=== PATIENT | female | born 1985 | race Caucasian/White ===

== ENCOUNTER 2024-07-14 14:50 | Outpatient (AMB) | payer OTHER, SELFPAY ==
--- NOTE | 2024-07-14 15:12 | A.OFFPC_ITS ---
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 ?? Prior PCP:?Lesser Last office visit/CPE:?> 5 yrs Acute issue(s):? Bouts of fatigue ?? PMHx:? Anemia, Covid, SurgHx:?None FHx:? Dad: DM, CHF, CAD , SD & Stents. CVA. Mom: Healthy. GM Breast CA, Parkinsons. SocHx: Quits cigs about 13 yrs ago, EtOH Occassioal 1-2 dr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 1. Little interest or pleasure in doing things: not at all 2. Feeling down, depressed, or hopeless: not at all 3. Trouble falling or staying asleep, or sleeping too much: several days 4. Feeling tired or having little energy: several days 5. Poor appetite or overeating: not at all 6. Feeling bad about yourself - or that you are a failure or have let yourself or your family down: not at all 7. Trouble concentrating on things, such as reading the newspaper or watching television: not at all 8. Moving or speaking so slowly that other people could have noticed. Or the op posite - being so fidgety or restless that you have been moving around a lot more than usual: not at all 9. Thoughts that you would be better off or of hurting yourself in some way: not at all Total score: 2 Depression Screening Interpretation: Negative Depression Screening Done: Yes 78299 - PHQ-9 Billing: Yes Source: Developed by Drs. Partha Sahni, Yana Varner, Parminder Ritchie and colleagues, with an educational jose from [employer]. Thrive Questionnaire Date Thrive assessed: 07/14/24 I am a: Patient What is your living situation today?: I have a steady place to live Within the past 12 months, did the food you bought not last and you didn't have the money to get more?: Never true Within the past 12 months, did you worry whether your food would run out before you got money to buy more?: Never true Do you have trouble paying for medicines?: No Do you have trouble getting transportation to medical appointments?: No Do you have trouble paying your heating and electricity bill?: No Do you have trouble taking care of your child, family member or friend?: No Do you have trouble with day-to-day activities such as bathing, preparing meals, shopping, managing finances, etc.?: No Are you currently unemployed and looking for a job?: No Are you interested in more education?: No Currently or been in a relationship where the following occur: No concerns reported THRIVE Score: 0 AUDIT C Alcohol Use Questionnaire (AUDIT-C) 1. How often do you have a drink containing alcohol?: Monthly or less 2. How many drinks containing alcohol do you have on a typical day when you are drinking?: 1 or 2 3. How often do you have six or more drinks on one occasion?: Never Total Score: 1 LASHAY-7 AMB Questionnaire LASHAY-7 Date LASHAY - 7 assessed: 07/14/24 Feeling nervous, anxious, or on edge: 0 = Not at all Not being able to stop or control worryin = Not at all Worrying too much about different things: 0 = Not at all Trouble relaxin = Several days Being so restless that it is hard to sit still: 0 = Not at all Becoming easily annoyed or irritable: 1 = Several days Feeling afraid as if something awful might happen: 0 = Not at all Total LASHAY-7 score (0-4 normal; 5-9 mild; 10-14 moderate; 15-21 severe): 2 Source: Developed by Drs. Partha Sahni, Yana Varner, Parminder Ritchie and colleagues, with an educational jose from [employer]. LASHAY-7 Assessment Billing LASHAY-7 Assessment Tool: LASHAY-7 Assessment 52513 Review of Systems Const Denies chills, Denies fatigue, Denies fever(s), Denies headache(s) and Denies weakness ENT Denies dizziness and Denies headache(s) Card Denies chest pain, Denies lightheadedness, Denies dyspnea and Denies other (Palpitations) Resp Denies cough, Denies dyspnea, Denies wheezing and Denies other ( shortness of breath) Musc Denies numbness and Denies tingling Neuro Denies dizziness, Denies headache(s), Denies numbness, Denies tingling, Denies paresthesias and Denies weakness Psych Denies anxiety and Denies depression Endo Denies fatigue Aller/Immun Denies wheezing Physical exam (Primary Care) Vital Signs: Last Vital Signs Temp 97.9 F 07/14/24 15:33 Pulse 92 07/14/24 15:33 Resp 16 07/14/24 15:33 BP 110/70 07/14/24 15:33 Pulse Ox 98 07/14/24 15:33 Oxygen Delivery Method Room Air 07/14/24 15:33 BMI result Body Mass Index 44.8 Tobacco/Smoking Status: Tobacco use Status Tobacco use date assessed 07/14/24 07/14/24 15:22 Patient Tobacco Use Status Former Tobacco user 07/14/24 15:30 e-Cigarette/Vaping Use Never Used 07/14/24 15:30 PHQ-9: PHQ-9 Score PHQ-9: Total score 2 07/14/24 15:36 Depression Screening Interpretation: Negative Thrive Assessment: Date of Thrive Assessment Date Thrive assessed 07/14/24 07/14/24 15:36 Currently or been in a relationship where the following occur: No concerns reported Const General: no acute distress and well developed Nutritional Appearance: well nourished and obese morbidly obese Orientation/consciousness: patient oriented x3 HENRI Head: Yes normocephalic and Yes atraumatic Eyes General: appearance normal, both eyes and all related structures Pupils: Equal, round and reactive pupils present EOM: EOMs intact bilaterally Resp Effort & Inspection: normal respiratory effort Auscultation: clear to auscultation bilaterally Cardio Rate: regular rate Rhythm: regular rhythm Heart sounds: S1 normal heart sound present, S2 normal heart sound present, no gallops, no murmurs and no rubs Neuro General: patient oriented x3 and gait normal Cranial nerves: Yes Equal, round and reactive pupils present Psych Affect: normal affect Assessment and Plan Assessment & Plan (1) Fatigue: Code(s): R53.83 - Other fatigue Plan: 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 She?notes?that?she?has?had?anemia?i n?the?past?and?has?already?started?iron.??Will?check?CBC?and?also?iron?studies. However,?patient?also?notes?she?gets?broken?sleep,?hypersomnia?and?un?restful?sl eep. ?Will?refer?her?to?Sleep?Medicine Also?advised?that?she?sleep?on?her?side?and?not?on?her?back Also?advised?she read?about?sleep?hygiene. (2) Sleep apnea: Code(s): G47.30 - Sleep apnea, unspecified Plan: As?above Referred?to?Sleep?Medicine (3) Laboratory exam ordered as part of routine general medical examination: Code(s): Z00.00 - Encounter for general adult medical examination without abnormal findings Plan: Check?labs Orders: Orders Comprehensive [place]. Panel Fast Today Z00.00 - Encounter for general adult medical examination without abnormal findings Complete Blood Count Auto Diff Today Z00.00 - Encounter for general adult medical examination without abnormal findings Lipid Panel Today Z00.00 - Encounter for general adult medical examination without abnormal findings TSH reflex Free T4 Today Z00.00 - Encounter for general adult medical examination without abnormal findings IRON PROFILE Today E61.1 - Iron deficiency Microalbumin, Random (w Creat) Today I10 - Essential (primary) hypertension UA and rflx microscopic Today Z00.00 - Encounter for general adult medical examination without abnormal findings Erythrocyte Sedimentation Rate Today R53.83 - Other fatigue CRP High Sensitivity Today R53.83 - Other fatigue Referrals Sleep Medicine Referral G47.30 - Sleep apnea, unspecified Coding Level of Care Code New Pt Level 3 (75520) Diagnoses Fatigue R53.83 Sleep apnea G47.30 Laboratory exam ordered as part of routine general medical examination Z00.00 Additional Codes LASHAY-7 Assessment Billing - LASHAY-7 Assessment Tool: LASHAY-7 Assessment 26623 ([id number])
[2024-07-14 15:33] VITALS: BP 110/70; PULSE 92; RESP 16; TEMP 36.6; O2SAT 98; BMI 44.8
== END 2024-07-14 15:53 | disposition home or self-care (01) ==
PROVIDERS: PCP Family Medicine; Visit Provider Family Medicine
DX: R53.83 Other fatigue (principal); G47.30 Sleep apnea, unspecified; Z00.00 Encounter for general adult medical examination without abnormal findings

== ENCOUNTER → 2024-07-14 14:50 | Outpatient (BNVA) | payer OTHER, SELFPAY | PROVIDERS: PCP Family Medicine; Visit Provider Family Medicine | DX: Z00.01 Encounter for general adult medical examination with abnormal findings (principal); R53.83 Other fatigue; G47.30 Sleep apnea, unspecified; Z86.2 Personal history of diseases of the blood and blood-forming organs and certain disorders involving the immune mechanism | CPT/HCPCS: 96127 ==

== ENCOUNTER 2024-07-23 08:18 | Outpatient (REF) | payer OTHER, SELFPAY ==
[2024-07-23 11:11] LABS: MANUAL DIFF FLAG NO
[2024-07-23 11:17] LABS: Basophils Absolute Auto 0.1 X10*3/uL (0.0-0.2); Basophils Percent Auto 0.8 % (0-2); Eosinophils Absolute Auto 0.1 X10*3/uL (0.0-0.4); Eosinophils Percent Auto 1.3 % (0-4); Imm Gran Abs Auto 0.03 X10*3/uL (0.00-0.03); Imm Gran Pct Auto 0.4 % (0.0-0.4); Lymphocytes Absolute Auto 2.4 X10*3/uL (1.2-4.9); Lymphocytes Percent Auto 31.8 % (20-40); Mean Corpuscular HGB Conc 32.4 g/dl (31.0-35.0); Mean Corpuscular Hemoglobin 27.2 pg (27.0-33.0); Mean Corpuscular Volume 83.9 fL (80.0-98.0); Mean Platelet Volume 10.8 fL (9.4-12.3); Monocytes Absolute Auto 0.4 X10*3/uL (0.1-1.2); Monocytes Percent Auto 5.7 % (2-11); Neutrophils Absolute Auto 4.6 x10*3/uL (2.0-8.3); Platelet Count 352 X10*3/uL (160-400); Red Blood Count 4.41 X10*6/uL (4.20-5.50); Red Cell Distribution Width 14.3 % (11.0-16.0); White Blood Count 7.6 X10*3/uL (4.8-10.8)
[2024-07-23 11:22] LABS: Appearance Urine Clear; Color Urine Yellow; Glucose Urine UA Negative (Negative); Leukocyte Esterase Urine Trace (Negative); Nitrite Urine Negative (Negative); PH 5.5 (5.0-9.0); UMIC TRIGGER UA YES; Urine Blood Negative (Negative); Urine Ketones Negative (Negative); Urine Protein Negative (Neg-Trace)
[2024-07-23 11:27] LABS: Bacteria Urine None Seen (None Seen); Hyaline Casts Urine 0-2 /LPF (0-2); RBC Urine 0-2 /HPF (0-2); Squamous Epithelial Cell Urine 0-2 /HPF (0-2); WBC Urine 0-5 /HPF (0-5)
[2024-07-23 11:48] LABS: Erythrocyte Sedimentation Rate 12 MM/HR (0-20)
[2024-07-23 12:26] LABS: Alanine Aminotransferase 18 U/L (0-31); Albumin Level 3.9 g/dL (3.5-5.0); Alkaline Phosphatase 65 U/L (39-117); Anion Gap 12 (12-20); Aspartate Amino Transferase 12 U/L (5-31); Bilirubin Total 0.4 mg/dL (0.0-1.0); Blood Urea Nitrogen 10 mg/dL (9-16); Calcium 9.3 mg/dL (8.4-10.2); Carbon Dioxide 27 mmol/L (22-29); Chloride 103 mmol/L (96-108); Cholesterol 210 mg/dL (<200); Estimated Glomerular Filt Rate > 60; Glucose Fasting 98 mg/dL (60-99); HDL Cholesterol 43 mg/dL (>40); Iron 72 mcg/dL (30-160); LDL Cholesterol Calculated 132 mg/dL (<100); Percent Iron Saturation 26 % (15-50); Potassium 3.9 mmol/L (3.3-5.1); Sodium 138 mmol/L (135-145); TSH reflex Free T4 1.36 uIU/mL (0.32-4.0); Total Iron Binding Capacity 278 mcg/dL (228-428); Total Protein 7.1 g/dL (6.5-8.0); Triglycerides 177 mg/dL (<150); Unsaturated Iron Binding 206 ug/dL
[2024-07-23 12:50] LABS: Microalbumin Urine < 5.0 mg/L
[2024-07-27 18:19] LABS: CRP High Sensitivity 7.1 mg/L
== END 2024-07-23 08:19 | disposition home or self-care (01) ==
LOC: HO.WFDLDS 08:18
PROVIDERS: Visit Provider Family Medicine
DX: Z00.00 Encounter for general adult medical examination without abnormal findings (principal); R53.83 Other fatigue; I10 Essential (primary) hypertension; E61.1 Iron deficiency
CPT/HCPCS: 36415; 80053; 80061; 81001; 82043; 82570; 83540; 84443; 85025; 85652; 86141